=== PATIENT | female | born 1975 | race Two or more races ===

== ENCOUNTER 2020-03-08 08:20 | Emergency (ER) | payer OTHER ==
--- NOTE | 2020-03-08 08:59 | TELE ---
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 asx, + exposures in hospital but with appropriate PPE. Past History - Medical History Allergies/Adverse Reactions: Allergies Allergy/AdvReac Type Severity Reaction Status Date / Time No Known Allergies Allergy Verified 12/21/15 07:20 Home Medications: Ambulatory Orders Mometasone Furoate [Nasonex] 1 - 2 inh NS DAILY 12/31/13 Amoxicillin/Potassium Clav [Augmentin 875-125 Tablet] 1 each PO BID #14 tablet 12/21/15 Cetirizine HCl [Zyrtec -] 10 mg PO DAILY #30 tablet 12/21/15 Cetirizine HCl [Zyrtec -] 10 mg PO DAILY #5 tablet 12/21/15 Methylprednisolone [Medrol Dose Adriel] 4 mg PO ASDIR #21 tablet 01/24/18 Polymyxin B Sulfate/Tmp [Polytrim Opthalmic Solution -] 1 drop OS Q6H #1 bottle 07/16/19 - Psycho-Social/Smoking History Smoking History: Never smoked Review of Systems - Review of Systems Able to Perform ROS?: Yes Constitutional: No: Chills, Fever, Night Sweats Respiratory: No: Cough, Shortness of Breath Cardiac (ROS): No: Chest Pain ABD/GI: No: Diarrhea, Vomiting Neurological: No: Headache *Physical Exam - Physical Exam 03/08/20 08:58 well appearing breathing normally, speaking full sentences moist mucosa, no jaundice, no pallor oriented, mood normal - Medical Decision Making 03/08/20 08:58 44y/o F for covid testing for travel clearance. asx covid testing ordered Discharge Diagnosis at time of Disposition: Encounter by telehealth for suspected COVID-19 - Referrals Follow-up Referral(s): Len Jameson MD [Primary Care Provider] - - Patient Instructions - Discharge Disposition: HOME Condition at time of Disposition: Stable
== END 2020-03-08 09:39 | disposition home or self-care (01) ==
LOC: JVIRT 08:20
DX: Z03.818 Encounter for observation for suspected exposure to other biological agents ruled out (principal)
CPT/HCPCS: Q3014-GT; U0003

== ENCOUNTER 2020-04-14 09:01 | Emergency (ER) | payer OTHER ==
--- NOTE | 2020-04-14 20:23 | TELE ---
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 asx and without recent illness. Past History - Medical History Allergies/Adverse Reactions: Allergies Allergy/AdvReac Type Severity Reaction Status Date / Time No Known Allergies Allergy Verified 12/21/15 07:20 Home Medications: Ambulatory Orders Mometasone Furoate [Nasonex] 1 - 2 inh NS DAILY 12/31/13 Amoxicillin/Potassium Clav [Augmentin 875-125 Tablet] 1 each PO BID #14 tablet 12/21/15 Cetirizine HCl [Zyrtec -] 10 mg PO DAILY #30 tablet 12/21/15 Cetirizine HCl [Zyrtec -] 10 mg PO DAILY #5 tablet 12/21/15 Methylprednisolone [Medrol Dose Adriel] 4 mg PO ASDIR #21 tablet 01/24/18 Polymyxin B Sulfate/Tmp [Polytrim Opthalmic Solution -] 1 drop OS Q6H #1 bottle 07/16/19 - Psycho-Social/Smoking History Smoking History: Never smoked Review of Systems - Review of Systems Constitutional: No: Chills, Fever HEENTM: No: Nose Congestion Respiratory: No: Cough ABD/GI: No: Diarrhea, Vomiting Musculoskeletal: No: Muscle Pain Neurological: No: Headache *Physical Exam - Physical Exam 04/14/20 20:22 well appearing, speaking full sentences no acute distress moist mucosa normal mood - Medical Decision Making 04/14/20 20:23 44y/o F for covid testing. no sxs or red flags to suggest covid. covid ordered Discharge Diagnosis at time of Disposition: Encounter by telehealth for suspected COVID-19 - Referrals Follow-up Referral(s): Len Jameson MD [Primary Care Provider] - - Patient Instructions
== END 2020-04-14 20:23 ==
LOC: JVIRT 09:01
DX: Z11.59 Encounter for screening for other viral diseases (principal)
CPT/HCPCS: Q3014-GT; U0003

== ENCOUNTER 2020-06-10 12:16 | Emergency (ER) | payer OTHER | END 2020-06-10 12:32 | disposition home or self-care (01) | LOC: JVIRT 12:16 | DX: Z03.818 Encounter for observation for suspected exposure to other biological agents ruled out (principal) | CPT/HCPCS: C9803; Q3014-GT; U0003 ==